=== PATIENT | male | born 1980 | race Caucasian/White ===

== ENCOUNTER 2022-07-26 20:56 | Emergency (ER) | payer OTHER ==
[2022-07-26] MEDS ORDERED: SODIUM CHLORIDE 0.9% 1,000 ML IV STA (21:28)
[2022-07-26] MEDS ORDERED: iohexoL-300 100 ML VIAL ONE (21:32)
[2022-07-26 21:47] LABS: BASOPHILS % (AUTO) 0.5 %; EOSINOPHILS # (AUTO) 0.1 10^3/uL (0.0-0.7); HCT - HEMATOCRIT 48.4 % (42.0-52.0); HGB - HEMOGLOBIN 16.2 g/dL (14.0-18.0); LYMPHOCYTES # (AUTO) 2.2 10^3/uL (1.5-3.5); MEAN CORPUSCULAR HEMOGLOBIN 30.9 pg (27.0-31.0); MEAN CORPUSCULAR HGB CONC 33.5 g/dL (32.0-36.0); MEAN CORPUSCULAR VOLUME 92.4 fL (80.0-94.0); MEAN PLATELET VOLUME 8.7 fL (7.4-11.4); MONOCYTES # (AUTO) 0.9 10^3/uL (0.0-1.0); MONOCYTES % (AUTO) 10.5 %; NEUTROPHILS # (AUTO) 5.1 10^3/uL (1.5-6.6); NEUTROPHILS % (AUTO) 60.9 %; PLT - PLATELET COUNT 292 10^3/uL (130-450); RED BLOOD COUNT 5.24 10^6/uL (4.70-6.10); WHITE BLOOD COUNT 8.3 x10^3/uL (4.8-10.8)
[2022-07-26 22:00] LABS: ALBUMIN 4.1 g/dL (3.2-5.5); BILIRUBIN,TOTAL 0.7 mg/dL (0.2-1.0); CALCIUM 9.1 mg/dL (8.5-10.3); CREATININE 0.9 mg/dL (0.6-1.2); POTASSIUM 3.7 mmol/L (3.5-5.0); TOTAL PROTEIN 8.3 g/dL (6.7-8.2)
--- NOTE | 2022-07-26 22:17 | ED Physician Documentation ---
History of Present Illness - Stated complaint Stated Complaint: HEADACHE, TINGLING FACE - Chief complaint Chief Complaint: Neuro - Additonal information Additional information: Patient 41-year-old male presenting to the emergency department chief complaint of headache. Headache ongoing x1 week. Began acutely while having intercourse. Is right-sided. Reports that it was maximal at time of onset however subsided shortly thereafter. He denies any fever, blurred vision, double vision, significant neck stiffness, or focal or lateralizing deficits. Did test positive for SARS COVID virus at home yesterday but denies any other symptoms. Denies any history of aneurysmal disease or family history of aneurysmal disease or subarachnoid hemorrhage. No independent historians, no limitations to history, no previous records available for comparison. Review of Systems Constitutional: denies: Fever Eyes: denies: Loss of vision, Decreased vision, Photophobia Ears: denies: Loss of hearing, Ear pain, Tinnitus/ringing Cardiac: denies: Chest pain / pressure GI: denies: Abdominal Pain, Nausea, Vomiting Musculoskeletal: denies: Neck pain Neurologic: reports: Numbness, Headache PD PAST MEDICAL HISTORY - Present Medications Home Medications: Ambulatory Orders Medication Instructions Recorded Confirmed Butalb/Acetaminophen/Caffeine 1 cap PO Q6H PRN #10 cap 07/26/22 [Fioricet 50-300-40 mg Capsule] - Allergies Allergies/Adverse Reactions: Allergies Allergy/AdvReac Type Severity Reaction Status Date / Time No Known Drug Allergies Allergy Verified 07/26/22 21:03 PD ED PE NORMAL - Vitals Vital signs reviewed: Yes (Mild hypertension but otherwise hemodynamically stable.) - General General: Alert and oriented X 3, No acute distress, Well developed/nourished, Other - HEENT HEENT: Atraumatic, PERRL, EOMI, Ears normal, Moist mucous membranes, Pharynx benign - Neck Neck: Supple, no meningeal sign, No bony TTP, No adenopathy, Thyroid normal, No JVD - Cardiac Cardiac: RRR, No gallop - Respiratory Respiratory: No respiratory distress - Abdomen Abdomen: Normal bowel sounds - Male Male : Deferred - Rectal Rectal: Deferred - Derm Derm: Normal color - Extremities Extremities: No deformity - Neuro Neuro: Alert and oriented X 3, speech instructor 2-12 intact, No motor deficit, Normal speech - Psych Psych: Normal mood Results - Vitals Vitals: Vital Signs - 24 hr 01/15/23 21:03 Temperature 36.7 C Heart Rate 81 Respiratory 16 Rate Blood Pressure 152/99 H O2 Saturation 98 Oxygen O2 Source Room air - Labs Labs: Laboratory Tests 07/26/22 07/26/22 07/26/22 21:33 21:33 21:33 WBC 8.3 RBC 5.24 Hgb 16.2 Hct 48.4 MCV 92.4 MCH 30.9 MCHC 33.5 RDW 12.0 Plt Count 292 MPV 8.7 Neut # (Auto) 5.1 Lymph # (Auto) 2.2 [place] # (Auto) 0.9 Eos # (Auto) 0.1 Baso # (Auto) 0.0 Absolute Nucleated RBC 0.00 Nucleated RBC % 0.0 PT 11.0 INR 1.0 Sodium 136 Potassium 3.7 Chloride 100 L Carbon Dioxide 27 Anion Gap 9.0 BUN 17 Creatinine 0.9 Estimated GFR (MDRD) 94 Glucose 93 Calcium 9.1 Total Bilirubin 0.7 AST 29 ALT 36 Alkaline Phosphatase 58 Total Protein 8.3 H Albumin 4.1 Globulin 4.2 Albumin/Globulin Ratio 1.0 Lipase 46 SARS-CoV-2 (PCR) 07/26/22 21:33 WBC RBC Hgb Hct MCV MCH MCHC RDW Plt Count MPV Neut # (Auto) Lymph # (Auto) [place] # (Auto) Eos # (Auto) Baso # (Auto) Absolute Nucleated RBC Nucleated RBC % PT INR Sodium Potassium Chloride Carbon Dioxide Anion Gap BUN Creatinine Estimated GFR (MDRD) Glucose Calcium Total Bilirubin AST ALT Alkaline Phosphatase Total Protein Albumin Globulin Albumin/Globulin Ratio Lipase SARS-CoV-2 (PCR) NOT DETECTED PD Medical Decision Making - ED course Complexity details: reviewed results, re-evaluated patient, d/w patient Reviewed Lab Results: CBC and comprehensive metabolic panel within normal limits. Social Determinants of Health: None Drug Therapy Requiring Monitoring for Toxicity: None Procedural Risk Factors Specific to Patient: None ED course: Patient is 41-year-old male presenting to the emergency department with headache that began approximately 1 week ago during intercourse. Patient did report that the headache was sudden in onset however he stated that after approximately 10 seconds his symptoms had significantly improved. Denies any loss of consciousness associated with the symptoms, fever or neck stiffness/immobility. He is otherwise low risk for aneurysmal disease and does not have any family history of aneurysmal disease. Nevertheless I did obtain labs which were within normal limits as well as a CT of his head and neck which were also benign and did not show any signs of bleeding or aneurysmal disease. I discussed these findings with the patient and after discussing pros and cons we elected to not obtain a lumbar puncture at this time. He was given a dose of Toradol for symptomatic management and I will discharge on a short course of Fioricet. I will encourage him to follow-up with his primary care doctor or return to the emergency department for persistent or worsening symptoms. Departure - Departure Disposition: 01 Home, Self Care Clinical Impression: Headache Instructions: ED Cephalgia Unspecified Prescriptions: Butalb/Acetaminophen/Caffeine [Fioricet 50-300-40 mg Capsule] 1 cap PO Q6H PRN #10 cap PRN Reason: headache
[2022-07-26] MEDS ORDERED: iohexoL-300 100 ML VIAL IVP ONE (22:35)
--- NOTE | 2022-07-26 22:47 | CT Report ---
PROCEDURE: ANGIO HEAD W/WO INDICATIONS: L sided facial droop CONTRAST: 100 ML OMNI 300 TECHNIQUE: Precontrast 4.5 mm thick angled axial sections acquired from the foramen magnum to the vertex. Afte r the administration of intravenous contrast, 1 mm thick sections acquired through the [place] of [place] is. Postcontrast 4.5 mm thick sections then re-acquired from the foramen magnum to the vertex. 3-di mensional hmzenmz-cqhdjgcxs-mdlpyolocf (MIP) and/or volume rendering reformats were acquired of the c entral intracranial vasculature. For radiation dose reduction, the following was used: automated ex posure control, adjustment of mA and/or kV according to patient size. COMPARISON: Concurrent CTA of the neck FINDINGS: Image quality: Excellent. BRAIN: CSF spaces: Basal cisterns are patent. No extra-axial fluid collections. Ventricles are normal in size and shape. Brain: No intracranial hemorrhage, mass, or mass effect. [place]-white matter interface appears preser chelly. No abnormal intracranial enhancement. Skull and face: Calvarium and facial bones appear intact, without suspicious lesions. Orbits appear normal. Sinuses: Sinuses and mastoids are clear. HEAD CT ANGIOGRAPHY: Anterior circulation: Intracranial internal carotid arteries are normal in size and appear patent bi laterally. There is mild atherosclerotic calcification along the cavernous segments of the internal carotid arteries. The paired anterior cerebral arteries appear patent bilaterally. The anterior com municating artery also appears patent. The middle cerebral arteries appear patent bilaterally. No hi gh-grade stenosis, occlusion, or filling defects. No cerebral aneurysms identified. Posterior circulation: Visualized portions of the vertebral arteries demonstrate normal caliber, and join to form a patent basilar artery. The posterior cerebral arteries appears patent bilaterally. No high-grade stenosis, occlusion, or filling defects. No cerebral aneurysms identified. IMPRESSION: 1. No acute intracranial abnormality. 2. No high-grade stenosis or occlusion of the central intracranial arteries. Reviewed by: Pranav Chao MD on 07/26/2022 10:46 PM PST Approved by: Pranav Chao MD on 07/26/2022 10:46 PM PST Station ID: [id number]
--- NOTE | 2022-07-26 22:50 | CT Report ---
PROCEDURE: ANGIO NECK W INDICATIONS: L sided facial droop, L neck pain CONTRAST: 100 ML OMNI 300 TECHNIQUE: After the administration of intravenous contrast, 1.5 mm axial sections acquired from the aortic arch to the [place] of [place]. Coronal 3-D maximum intensity projection (MIP) and/or volume rendering ref ormats were then performed. For radiation dose reduction, the following was used: automated exposur e control, adjustment of mA and/or kV according to patient size. COMPARISON: Concurrent CTA of the head. FINDINGS: Image quality: Excellent. NECK CT ANGIOGRAPHY: Carotid system: The great vessels demonstrate a conventional anatomy as they arise from the aortic a rch. The origins of the common carotid arteries appear patent. The common carotid arteries demonstr ate normal caliber and courses. The bifurcation regions are both widely patent. The internal caroti d arteries demonstrate normal calibers and courses. Posterior circulation: The origins of the vertebral arteries both appear patent. The more superior extracranial portions of both vertebral arteries also demonstrate normal courses and calibers. They join to form a patent basilar artery. Soft tissues: Visualized neck soft tissues demonstrate a few hyperattenuating right thyroid nodules measuring up to 0.9 cm in diameter. Bones: No suspicious bony lesions. Visualized cervical spine demonstrates straightening of the cerv ical lordosis. IMPRESSION: 1. No high-grade stenosis or occlusion of the head and neck arteries. 2. Carotid bulbs are widely patent. The estimate of stenosis included in the report of the imaging study was calculated using the NASCET method Reviewed by: Pranav Chao MD on 07/26/2022 10:49 PM [facility] Approved by: Pranav Chao MD on 07/26/2022 10:49 PM PST Station ID: [id number]
[2022-07-26] MEDS ORDERED: KETOROLAC 30 MG/ML VIAL IVP STA (22:53)
[2022-07-26 23:12] VITALS: BP 126/105
== END 2022-07-26 23:15 | disposition home or self-care (01) ==
LOC: ED 20:56
DX: R51.9 Headache, unspecified (principal); Z20.822 Contact with and (suspected) exposure to COVID-19
CPT/HCPCS: 36415; 70496; 70498; 80053; 83690; 85025; 85610; 87635; 96374; 99284; Q9967

== ENCOUNTER 2023-11-09 13:16 | Emergency (ER) | payer OTHER ==
[2023-11-09 13:48] LABS: BASOPHILS % (AUTO) 0.4 %; EOSINOPHILS % (AUTO) 0.4 %; HCT - HEMATOCRIT 49.9 % (42.0-52.0); HGB - HEMOGLOBIN 16.4 g/dL (14.0-18.0); LYMPHOCYTES % (AUTO) 26.7 %; MEAN CORPUSCULAR HEMOGLOBIN 30.3 pg (27.0-31.0); MEAN CORPUSCULAR HGB CONC 32.9 g/dL (32.0-36.0); MEAN CORPUSCULAR VOLUME 92.1 fL (80.0-94.0); MONOCYTES # (AUTO) 0.6 10^3/uL (0.0-1.0); MONOCYTES % (AUTO) 7.5 %; NEUTROPHILS # (AUTO) 4.8 10^3/uL (1.5-6.6); NEUTROPHILS % (AUTO) 64.7 %; PLT - PLATELET COUNT 322 10^3/uL (130-450); RED BLOOD COUNT 5.42 10^6/uL (4.70-6.10); RED CELL DISTRIBUTION WIDTH 11.9 % (12.0-15.0); WHITE BLOOD COUNT 7.4 x10^3/uL (4.8-10.8)
[2023-11-09 14:05] LABS: ALBUMIN 4.5 g/dL (3.2-5.5); ALBUMIN/GLOBULIN RATIO 1.1 (1.0-2.2); ALKALINE PHOSPHATASE 61 IU/L (42-121); ALT ALANINE AMINOTRANSFERASE 42 IU/L (10-60); AST ASPARTATE AMINOTRANSFERASE 30 IU/L (10-42); BILIRUBIN,TOTAL 0.6 mg/dL (0.2-1.0); BUN - BLOOD UREA NITROGEN 15 mg/dL (6-20); CARBON DIOXIDE - CO2 25 mmol/L (21-32); CHLORIDE 102 mmol/L (101-111); CREATININE 0.8 mg/dL (0.6-1.3); GFR - MDRD 107 (>89); GLUCOSE 119 mg/dL (74-104); LIPASE 35 U/L (11-82); POTASSIUM 3.8 mmol/L (3.5-4.5); SODIUM 136 mmol/L (135-145); TOTAL PROTEIN 8.5 g/dL (6.4-8.9)
[2023-11-09 14:09] LABS: TROPONIN I HIGH SENSITIVITY < 2.3 ng/L (2.3-19.7)
[2023-11-09] MEDS: METOPROLOL 5 MG/5 ML VIAL IVP STA (14:12)
[2023-11-09] MEDS: SODIUM CHLORIDE 0.9% 1,000 ML IV STA (14:12)
[2023-11-09 14:19] LABS: THYROID STIMULATING HORMONE 3.55 uIU/mL (0.34-5.60)
--- NOTE | 2023-11-09 14:23 | ED Physician Documentation ---
PD HPI CHEST PAIN - Stated complaint Stated Complaint: IRREGULAR HEART RATE - Chief complaint Chief Complaint: Cardiac - History obtained from History obtained from: Patient - History of Present Illness Timing - onset: How many days ago (2-3) Timing - onset during: Light activity Timing - details: Gradual onset, Still present, Waxing and waning Quality: No: Tightness, Aching, Pain Location: Substernal, Left chest Radiation: No: Jaw, Neck Improved by: Rest Worsened by: Other (The patient has noticed irregularity to his heart rhythm. No associated symptoms of lightheadedness, chest pain, dyspnea nor edema.). No: Exertion, Inspiration Associated symptoms: Shortness of air, Palpitations. No: Nausea, Vomiting, Feeling faint / dizzy Similar symptoms before: Has not had sx before Recently seen: Not recently seen Review of Systems Constitutional: denies: Fever, Chills Nose: denies: Rhinorrhea / runny nose, Congestion Throat: denies: Sore throat Cardiac: reports: Palpitations. denies: Chest pain / pressure Respiratory: denies: Dyspnea, Cough GI: denies: Abdominal Pain, Nausea, Vomiting, Diarrhea PD PAST MEDICAL HISTORY - Past Medical History Past Medical History: No - Past Surgical History Past Surgical History: No - Present Medications Home Medications: Ambulatory Orders Medication Instructions Recorded Confirmed Metoprolol Succinate [Toprol Xl] 25 mg PO DAILY #30 tablet 11/09/23 Potassium Chloride 20 meq PO DAILY #30 tab 11/09/23 - Allergies Allergies/Adverse Reactions: Allergies Allergy/AdvReac Type Severity Reaction Status Date / Time No Known Drug Allergies Allergy Verified 11/09/23 13:26 - Social History Does the pt smoke?: No Smoking Status: Never smoker Does the pt drink ETOH?: Yes Does the pt have substance abuse?: No PD ED PE NORMAL - Vitals Vital signs reviewed: Yes - General General: Alert and oriented X 3, No acute distress, Well developed/nourished - HEENT HEENT: Pharynx benign - Neck Neck: Supple, no meningeal sign, No adenopathy - Cardiac Cardiac: No murmur, No rub. No: RRR (Irregular but rate approximately 100-115.) - Respiratory Respiratory: No respiratory distress, Clear bilaterally - Abdomen Abdomen: Soft, Non tender - Derm Derm: Normal color, Warm and dry - Extremities Extremities: No edema, No calf tenderness / cord - Neuro Neuro: Alert and oriented X 3, No motor deficit, Normal speech Results - Vitals Vitals: Oxygen O2 Source Room air - EKG (time done) 13:34 EKG releavant findings:: EKG personally interpreted by author of this note. Relevant findings are: Rate: Rate (enter#) (87) Rhythm: Sinus tachycardia (with frequent PACs.), Other (frequent PACs Ectopic atrial focus with the PACs being predominant over normal beats.) [place]: Normal Intervals: Normal MI, Wide QRS QRS: Normal Ischemia: Normal ST segments. No: ST elevation c/w ischemia, ST depression - Labs Labs: Laboratory Tests 11/09/23 11/09/23 11/09/23 13:40 13:40 13:40 WBC 7.4 RBC 5.42 Hgb 16.4 Hct 49.9 MCV 92.1 MCH 30.3 MCHC 32.9 RDW 11.9 L Plt Count 322 MPV 9.0 Neut # (Auto) 4.8 Lymph # (Auto) 2.0 [place] # (Auto) 0.6 Eos # (Auto) 0.0 Baso # (Auto) 0.0 Absolute Nucleated RBC 0.00 Nucleated RBC % 0.0 Sodium 136 Potassium 3.8 Chloride 102 Carbon Dioxide 25 Anion Gap 9.0 BUN 15 Creatinine 0.8 Estimated GFR (MDRD) 107 Glucose 119 H Calcium 10.0 Phosphorus 3.0 Magnesium 2.0 Total Bilirubin 0.6 AST 30 ALT 42 Alkaline Phosphatase 61 Troponin I High Sens < 2.3 L B-Natriuretic Peptide 6 Total Protein 8.5 Albumin 4.5 Globulin 4.0 Albumin/Globulin Ratio 1.1 Lipase 35 TSH 3.55 - Rads (name of study) chest xray Relevant Findings:: Prelim report reviewed (mild congestion, no infiltrates. ), EMP independent interpretation of test PD Medical Decision Making - ED course Complexity details: considered differential (The patient has had a feeling of irregular heartbeat without any chest pain or dyspnea. No near syncope. He states his heart rate has felt irregular pace between 50s and 110. No recent illness. No dehydration. No regular alcohol or caffeine use.), d/w patient ED course: The patient started 2 to 3 days ago with a feeling of irregular heartbeat and surges/palpitations in his chest. No chest pain lightheadedness nor presyncope. No dyspnea. He has not had any recent cold or flu illness. He denies regular alcohol or caffeine use. Just an occasional drink once or twice a week and 1 coffee a day. No recent weight loss or weight gain. No recent dehydration or other illness. He states other family members have had some mild URI symptoms but he has not. He is demonstrating a sinus rhythm with frequent PACs and pauses. No dropped beats. No prolonged pauses. The number of PACs is actually dominant over the sinus beats here in the ER. He has a adequate blood pressure and oxygenation. Basic chemistry panel was obtained. His potassium is in the normal range but lower normal at 3.8. Magnesium and sodium and calcium are good. Troponin and BNP are both normal and the chest x-ray does not show any enlargement of the heart. There is no ischemic changes on the EKG. No signs of carditis or myocarditis. Presumption would be benign PACs though symptomatic. TSH is also measured which is normal. Departure - Departure Disposition: 01 Home, Self Care Clinical Impression: Irregular heart rhythm, PAC (premature atrial contraction) Condition: Stable Record reviewed to determine appropriate education?: Yes Instructions: ED Palpitations Follow-Up: [facility] [Provider Group] Prescriptions: Potassium Chloride 20 meq PO DAILY #30 tab Metoprolol Succinate [Toprol Xl] 25 mg PO DAILY #30 tablet Comments: Your EKG and heart monitor showing irregular normal heart beat as a base with frequent extra atrial beats called premature atrial contractions (PACs). Following PACs, commonly there is a pause in the next beat you feel has an extra surge of blood because of increased feeling of the heart during that pause. This can be annoying but it is not dangerous or bad. Your blood tests are showing normal values for your electrolytes, blood sugar, thyroid screen. The potassium is in the lower end of normal and is a chavez determinant of heart rhythm contractions so I would suggest a potassium supplement in the short-term. Otherwise stay well-hydrated. Based on your EKG, chest x-ray and blood test called troponin and BNP, there is no signs of enlargement of the heart, heart failure, heart attack or injury or acute inflammatory process of the heart. At this point the cause of the extra beats happening now is unclear. It will often be a brief phase that people will have extra beats. It does not sound like you do have any regular irritants such as excess caffeine or alcohol use. Add the potassium supplement and stay well-hydrated. To decrease the symptoms of this, you can add metoprolol daily for the next week or 2. Often there will be several days to week or so of what ever determinant it is for the extra beats to phase out. Otherwise follow-up with your [facility] clinic[facility]primary care. They could set you up with a heart monitor that you wear for a week or so just to get the broader scope of how often this is and if there is any other variations to the irregularity not she seen here in the ER. Return if worsening symptoms associated with it. I sent your prescription to your preferred pharmacy. Forms: PCP List Discharge Date/Time: 11/09/23 15:22
[2023-11-09] MEDS: POTASSIUM BICARB 25 MEQ TABLET PO STA (14:28)
--- NOTE | 2023-11-09 14:57 | XRAY Report ---
PROCEDURE: Chest 1V INDICATIONS: irreg heart rate TECHNIQUE: One view of the chest was acquired. COMPARISON: None. FINDINGS: Surgical changes and devices: None. Lungs and pleura: No pleural effusions or pneumothorax. Mild pulmonary vascular congestion is seen. No focal infiltrate. Mediastinum: Mediastinal contours appear normal. Heart size is normal. Bones and chest wall: No suspicious bony lesions. Overlying soft tissues appear unremarkable. IMPRESSION: Mild congestion. No definite focal infiltrate. No pleural effusion or pneumothorax. Reviewed by: Robin Rich MD on 11/09/2023 2:55 PM PDT Approved by: Robin Rich MD on 11/09/2023 2:55 PM PDT Station ID: [id number]
[2023-11-09] MEDS: METOPROLOL TARTRATE 50 MG TABLET PO STA (15:03)
[2023-11-09 15:29] VITALS: BP 134/98; O2SAT 98
== END 2023-11-09 15:22 | disposition home or self-care (01) ==
LOC: ED 13:16
DX: I49.9 Cardiac arrhythmia, unspecified (principal); I49.1 Atrial premature depolarization
CPT/HCPCS: 36415; 71045; 80053; 83690; 83735; 83880; 84100; 84443; 84484; 85025; 93005; 96374; 99284; A9270